=== PATIENT | male | born 1950 | race African-American/Black ===

== ENCOUNTER 2017-11-25 22:34 | Inpatient (IN) ==
[2017-11-26 00:41] LABS: Basophils # 0.1 10*3/uL (0.0-0.2); Basophils % 1.1 % (0.0-0.8); Eosinophils # 0.5 10*3/uL (0.0-0.87); Eosinophils % 6.6 % (0.00-10.9); Hematocrit 41.4 VOL% (42.0-52.0); Hemoglobin 14.1 GM/DL (14.0-18.0); Immature Granulocytes % 0.4 %; Immature Granulocytes Absolute 0.03 #; Lymphocytes # 2.5 10*3/uL (1.4-4.0); Lymphocytes % 35.7 % (21.2-54.2); Mean Corpuscular HGB Conc 34.1 GM/DL (32-36); Mean Corpuscular Hemoglobin 29 PG (27-34); Mean Corpuscular Volume 86.4 FL (87-102); Mean Platelet Volume 11.4 FL (9.6-12.0); Monocytes # 0.9 10*3/uL (0.11-0.8); Neutrophils # 3.1 10*3/uL (1.4-7.4); Neutrophils % 44.2 % (38.7-73.9); Platelet Count 218 T/CUMM (130-400); Red Blood Count 4.79 MC/CUMM (3.8-5.5); Red Cell Distribution Width 13.9 % (9.3-17.3); White Blood Count 7.1 T/CUMM (4-12)
[2017-11-26 00:45] LABS: Albumin 3.2 G/DL (3.4-5.0); Bilirubin,Total 9.6 MG/DL (0.2-1.0); Calcium 9.1 MG/DL (8.5-10.1); Osmolality,Calculated 280.5 MOS/KG (273-304); Potassium 3.7 MMOL/L (3.5-5.1); Total Protein 7.5 G/DL (6.4-8.3)
[2017-11-26 01:00] LABS: Apearance,Urine CLEAR (Clear); Bilirubin,Urine Moderate mg/dL (Negative); Blood, Urine Moderate mg/dL (Negative); Glucose,Urine (UA) Negative (Negative); Hyaline Casts,Urine 6 /LPF (0-3); Ketones,Urine Negative (Negative); Mucus,Urine Occasional /LPF (Occasional); Nitrite,Urine Negative (Negative); Protein,Urine Negative; RBC,Urine 3 /HPF (0-4); Squamous Epithelial Cell,Urine Occasional /HPF (0-10); Urine Color Amber (Yellow); WBC,Urine 2 /HPF (0-6)
[2017-11-26] MEDS ORDERED: MORPHINE 2 MG/1 ML SYRINGE IV PRN (07:50)
[2017-11-26] MEDS ORDERED: CIPROFLOXACIN 400 MG/200 ML PREMIX IV ONE (08:32)
[2017-11-26] MEDS ORDERED: FAMOTIDINE 20 MG/2 ML VIAL IV ONE (08:32)
[2017-11-26] MEDS: CIPROFLOXACIN INJ 400 MG in PREMIX 1 EACH IV SCH ×2 (08:39→22:35)
[2017-11-26] MEDS: FAMOTIDINE 20 MG/2 ML VIAL IV SCH ×2 (08:39→20:47)
[2017-11-26] MEDS ORDERED: metroNIDAZOLE 500 MG/100 ML PREMIX IV ONE (10:16)
[2017-11-26] MEDS: metroNIDAZOLE INJ 500 MG in PREMIX 1 EACH IV SCH ×2 (10:22→17:17)
[2017-11-26] MEDS ORDERED: ACETAMINOPHEN 325 MG TABLET PO PRN (10:41)
[2017-11-26] MEDS ORDERED: guaiFENesin/DM ER 600-30 MG TABLET PO PRN (10:41)
[2017-11-26] MEDS ORDERED: PROMETHAZINE 25 MG/1 ML VIAL IM PRN (10:41)
[2017-11-26] MEDS ORDERED: DOCUSATE SODIUM 100 MG CAPSULE PO PRN (10:41)
[2017-11-26] MEDS ORDERED: ONDANSETRON 4 MG/2 ML VIAL IV PRN (10:41)
[2017-11-26] MEDS ORDERED: diphenhydrAMINE CAP 25 MG CAPSULE PO PRN (10:41)
[2017-11-26] MEDS ORDERED: SODIUM CHLORIDE 0.9% 1,000 ML IV SCH (11:00)
[2017-11-26] MEDS ORDERED: PANTOPRAZOLE 40 MG VIAL IV ONE (11:05)
[2017-11-26] MEDS ORDERED: ENOXAPARIN 40 MG/0.4 ML SYRINGE ONE (11:05)
[2017-11-26] MEDS ORDERED: HYDROmorphone 2 MG/1 ML VIAL ONE (11:06)
[2017-11-26] MEDS: HYDROmorphone 2 MG/1 ML VIAL IV SCH (11:15)
[2017-11-26] MEDS: ENOXAPARIN 40 MG/0.4 ML SYRINGE SUBCUT SCH (11:15)
[2017-11-26] MEDS: PANTOPRAZOLE 40 MG VIAL IV SCH (11:16)
[2017-11-26] MEDS: LISINOPRIL/HCTZ 20-12.5 MG TABLET PO SCH (11:31)
[2017-11-26 12:53] LABS: AFP Tumor 1.6 NG/ML (0-8); Cancer Antigen 19-9 493.5 U/ML (0-37)
[2017-11-26 13:15] LABS: INR 1.1; PT Patient Result 11.8 SECS; Partial Thromboplastin Time 30.8 SECS (0-40)
[2017-11-26] MEDS ORDERED: PROPOFOL 200 MG/20 ML VIAL IV ONE (13:32)
[2017-11-26] MEDS ORDERED: ROCURONIUM 100 MG/10 ML VIAL IV ONE (13:32)
[2017-11-26] MEDS ORDERED: LIDOCAINE 2% 5 ML VIAL ONE (13:32)
[2017-11-26] MEDS ORDERED: ONDANSETRON 4 MG/2 ML VIAL ONE (13:32)
[2017-11-26] MEDS ORDERED: GLYCOPYRROLATE 0.4 MG/2 ML VIAL ONE (13:32)
[2017-11-26] MEDS ORDERED: SUCCINYLCHOLINE 200 MG/10 ML VIAL ONE (13:32)
[2017-11-26] MEDS ORDERED: INDOMETHACIN SUPP 50 MG SUPP RECTAL ONE (13:44)
[2017-11-26] MEDS ORDERED: fentaNYL 100 MCG/2 ML VIAL ONE (14:27)
[2017-11-26] MEDS ORDERED: ePHEDrine 50 MG/ML AMP ONE (14:28)
[2017-11-26] MEDS: SODIUM CHLORIDE 0.9% 1,000 ML IV SCH (17:16)
[2017-11-27] MEDS: metroNIDAZOLE INJ 500 MG in PREMIX 1 EACH IV SCH ×5 (00:52→23:58)
[2017-11-27] MEDS: SODIUM CHLORIDE 0.9% 1,000 ML IV SCH ×2 (06:19→20:42)
[2017-11-27] MEDS: HYDROmorphone 2 MG/1 ML VIAL IV SCH (07:37)
[2017-11-27] MEDS: LISINOPRIL/HCTZ 20-12.5 MG TABLET PO SCH ×2 (07:39→09:05)
[2017-11-27 08:17] LABS: Basophils # 0.1 10*3/uL (0.0-0.2); Basophils % 0.7 % (0.0-0.8); Eosinophils # 0.1 10*3/uL (0.0-0.87); Eosinophils % 1.1 % (0.00-10.9); Hematocrit 41.6 VOL% (42.0-52.0); Hemoglobin 14.4 GM/DL (14.0-18.0); Immature Granulocytes % 0.3 %; Immature Granulocytes Absolute 0.03 #; Lymphocytes % 11.6 % (21.2-54.2); Mean Corpuscular HGB Conc 34.6 GM/DL (32-36); Mean Corpuscular Hemoglobin 30 PG (27-34); Mean Corpuscular Volume 86.1 FL (87-102); Mean Platelet Volume 10.5 FL (9.6-12.0); Monocytes # 0.8 10*3/uL (0.11-0.8); Monocytes % 8.7 % (1.7-12.7); Neutrophils % 77.6 % (38.7-73.9); Platelet Count 207 T/CUMM (130-400); Red Blood Count 4.83 MC/CUMM (3.8-5.5); Red Cell Distribution Width 13.8 % (9.3-17.3)
[2017-11-27 08:52] LABS: Albumin 3.3 G/DL (3.4-5.0); Calcium 8.4 MG/DL (8.5-10.1); Osmolality,Calculated 274.8 MOS/KG (273-304); Potassium 3.7 MMOL/L (3.5-5.1)
[2017-11-27] MEDS: CIPROFLOXACIN INJ 400 MG in PREMIX 1 EACH IV SCH ×2 (10:11→20:36)
[2017-11-27] MEDS: FAMOTIDINE 20 MG/2 ML VIAL IV SCH ×2 (10:12→20:38)
[2017-11-27] MEDS: PANTOPRAZOLE 40 MG VIAL IV SCH (10:13)
[2017-11-27] MEDS: TAMSULOSIN 0.4 MG CAPSULE PO SCH (10:16)
[2017-11-27] MEDS: ENOXAPARIN 40 MG/0.4 ML SYRINGE SUBCUT SCH (13:52)
[2017-11-28] MEDS: metroNIDAZOLE INJ 500 MG in PREMIX 1 EACH IV SCH ×3 (06:23→18:26)
[2017-11-28 07:58] LABS: Albumin 2.7 G/DL (3.4-5.0); Bilirubin,Total 3.5 MG/DL (0.2-1.0); Osmolality,Calculated 282.3 MOS/KG (273-304); Potassium 3.6 MMOL/L (3.5-5.1); Total Protein 5.7 G/DL (6.4-8.3)
[2017-11-28] MEDS ORDERED: hydrALAZINE 20 MG/1 ML VIAL IV PRN (08:15)
[2017-11-28] MEDS ORDERED: SODIUM CHLORIDE 0.9% 1,000 ML IV SCH (08:30)
[2017-11-28] MEDS: CIPROFLOXACIN INJ 400 MG in PREMIX 1 EACH IV SCH ×2 (09:22→21:59)
[2017-11-28] MEDS: LISINOPRIL/HCTZ 20-12.5 MG TABLET PO SCH (09:37)
[2017-11-28] MEDS ORDERED: HYDROmorphone 2 MG/1 ML VIAL IV PRN (11:06)
[2017-11-28] MEDS: TAMSULOSIN 0.4 MG CAPSULE PO SCH (12:31)
[2017-11-28] MEDS: PANTOPRAZOLE 40 MG VIAL IV SCH (12:33)
[2017-11-28] MEDS: ENOXAPARIN 40 MG/0.4 ML SYRINGE SUBCUT SCH (12:34)
[2017-11-28] MEDS: FAMOTIDINE 20 MG/2 ML VIAL IV SCH (12:34)
[2017-11-28] MEDS: cloNIDine 0.1 MG TABLET PO SCH ×3 (13:14→21:48)
[2017-11-28] MEDS: HYDROmorphone 2 MG/1 ML VIAL IV PRN ×3 (14:39→21:44)
[2017-11-28 18:39] LABS: Apearance,Urine Clear (Clear); Bilirubin,Urine Negative (Negative); Glucose,Urine (UA) Negative (Negative); Ketones,Urine Negative (Negative); Nitrite,Urine Negative (Negative); Protein,Urine Negative; Urine Color Yellow (Yellow)
[2017-11-28 18:40] LABS: Blood, Urine Trace mg/dL (Negative); WBC,Urine 0-5 /HPF (0-6)
[2017-11-29] MEDS: FAMOTIDINE 20 MG/2 ML VIAL IV SCH ×2 (00:34→09:02)
[2017-11-29] MEDS: metroNIDAZOLE INJ 500 MG in PREMIX 1 EACH IV SCH ×3 (00:40→12:21)
[2017-11-29 05:42] LABS: Calcium 8.2 MG/DL (8.5-10.1); Osmolality,Calculated 282.3 MOS/KG (273-304); Potassium 3.7 MMOL/L (3.5-5.1)
[2017-11-29] MEDS: CIPROFLOXACIN INJ 400 MG in PREMIX 1 EACH IV SCH (09:02)
[2017-11-29] MEDS: PANTOPRAZOLE 40 MG VIAL IV SCH (09:02)
[2017-11-29] MEDS: TAMSULOSIN 0.4 MG CAPSULE PO SCH (09:03)
[2017-11-29] MEDS: LISINOPRIL/HCTZ 20-12.5 MG TABLET PO SCH (09:03)
[2017-11-29] MEDS: cloNIDine 0.1 MG TABLET PO SCH (09:03)
[2017-11-29] MEDS: HYDROmorphone 2 MG/1 ML VIAL IV SCH ×4 (09:23→09:25)
[2017-11-29] MEDS: SODIUM CHLORIDE 0.9% 1,000 ML IV SCH (09:25)
[2017-11-29 09:57] LABS: Albumin 2.6 G/DL (3.4-5.0); Bilirubin,Direct 1.94 MG/DL (0.0-0.20); Bilirubin,Indirect 0.6 MG/DL (0.0-1.0); Bilirubin,Total 2.5 MG/DL (0.2-1.0); Total Protein 5.3 G/DL (6.4-8.3)
[2017-11-29] MEDS: ENOXAPARIN 40 MG/0.4 ML SYRINGE SUBCUT SCH (12:21)
[2017-11-29 16:24] VITALS: BP 112/67
== END 2017-11-29 17:32 | disposition home or self-care (01) | DRG 438 ==
LOC: N.ED 22:34 → N.EDINP 11-26 12:07 → N.4E 11-26 12:09
PROC: ERCPWST (ICD-10-PCS; 2017-11-26 12:50)

== ENCOUNTER 2018-09-14 20:16 | Inpatient (IN) ==
[2018-09-14] MEDS ORDERED: SODIUM CHLORIDE 0.9% 1,000 ML IV STA (20:28)
[2018-09-14] MEDS ORDERED: DILTIAZEM 50 MG/10 ML VIAL IV STA ×2 (20:28→20:36)
[2018-09-14] MEDS ORDERED: DILTIAZEM 25 MG/5 ML VIAL IV ONE (20:31)
[2018-09-14 20:59] LABS: INR 2.4
[2018-09-14 21:04] LABS: Hematocrit 47.1 VOL% (42.0-52.0); Hemoglobin 15.2 GM/DL (14.0-18.0); Lymphocytes % 98.1 % (21.2-54.2); Mean Corpuscular HGB Conc 32.3 GM/DL (32-36); Mean Corpuscular Hemoglobin 28 PG (27-34); Mean Corpuscular Volume 87.9 FL (87-102); Neutrophils % 1.9 % (38.7-73.9); Red Blood Count 5.36 MC/CUMM (3.8-5.5); Red Cell Distribution Width 13.3 % (9.3-17.3)
[2018-09-14 21:06] LABS: Albumin 2.5 G/DL (3.4-5.0); Bilirubin,Total 0.6 MG/DL (0.2-1.0); Calcium 8.8 MG/DL (8.5-10.1); Osmolality,Calculated 324.7 MOS/KG (273-304); Thyroid Stimulating Hormone 1.65 uIU/ml (0.358-3.74); Total Protein 6.6 G/DL (6.4-8.3)
[2018-09-14 21:10] LABS: Platelet Count 5 T/CUMM (130-400)
[2018-09-14] MEDS ORDERED: CEFEPIME 1,000 MG in SODIUM CHLORIDE 0.9% 100 ML IV STA (21:17)
[2018-09-14 22:33] LABS: Lactic Acid 4.9 MMOL/L (0.4-2.0)
[2018-09-14] MEDS ORDERED: ACETAMINOPHEN 500 MG TABLET PO PRN (22:43)
[2018-09-14] MEDS ORDERED: ONDANSETRON 4 MG/2 ML VIAL IV PRN (22:43)
[2018-09-14] MEDS ORDERED: LACTULOSE 20 GM/30 ML UDCUP PO PRN (22:43)
[2018-09-14] MEDS ORDERED: NICOTINE 21 MG/24 HR PATCH TRANSDERM PRN (22:43)
[2018-09-14] MEDS ORDERED: PROMETHAZINE 25 MG/1 ML VIAL IM PRN (22:43)
[2018-09-14] MEDS ORDERED: DEXTROSE 50% 25 GM/50 ML VIAL IV PRN (22:43)
[2018-09-14] MEDS ORDERED: dilTIAZem Drip 125 MG/125 ML PREMIX IV ONE (22:43)
[2018-09-14] MEDS ORDERED: GLUCAGON 1 MG VIAL IM PRN (22:43)
[2018-09-14] MEDS ORDERED: ALBUTEROL 2.5 MG/3 ML NEB RESP TX PRN (22:43)
[2018-09-14] MEDS ORDERED: diphenhydrAMINE CAP 25 MG CAPSULE PO PRN (22:43)
[2018-09-14] MEDS: dilTIAZem Drip 125 MG/125 ML PREMIX IV SCH (23:00)
[2018-09-14] MEDS ORDERED: PIPERACILLIN/TAZOBACTAM 3,375 MG in SODIUM CHLORIDE 0.9% 100 ML IV SCH (23:00)
[2018-09-14] MEDS: SODIUM CHLORIDE 0.9% 1,000 ML IV SCH (23:00)
[2018-09-14] MEDS ORDERED: CEFEPIME 1,000 MG in SODIUM CHLORIDE 0.9% 100 ML IV SCH (23:00)
[2018-09-14] MEDS ORDERED: PIPERACILLIN/TAZOBACTAM 2,250 MG in SODIUM CHLORIDE 0.9% 100 ML IV SCH (23:30)
[2018-09-14 23:33] LABS: Anisocytosis Slight; Lymphocytes 100 % (20-55); Macrocytosis Slight; Nucleated Red Blood Cells 2 (0-5); Platelet Estimate Decreased; Total Cells Counted 100
[2018-09-14] MEDS ORDERED: SODIUM CHLORIDE 0.9% 1,000 ML IV PRN (23:45)
[2018-09-15] MEDS ORDERED: NOREPINEPHRINE 4 MG/4 ML VIAL IV ONE (00:36)
[2018-09-15] MEDS ORDERED: VANCOMYCIN INJ 1,000 MG in SODIUM CHLORIDE 0.9% 250 ML IV SCH (01:00)
[2018-09-15] MEDS: NOREPINEPHRINE 8 MG in SODIUM CHLORIDE 0.9% 242 ML IV PRN (01:09)
[2018-09-15] MEDS: ALBUTEROL/IPRATROPIUM 3 ML NEB RESP TX SCH ×4 (01:40→19:22)
[2018-09-15] MEDS: INSULIN REGULAR 100 UNIT/ML SUBCUT SCH ×4 (02:55→17:30)
[2018-09-15] MEDS: PIPERACILLIN/TAZOBACTAM 3,375 MG in SODIUM CHLORIDE 0.9% 100 ML IV SCH ×3 (03:51→17:30)
[2018-09-15] MEDS ORDERED: SODIUM CHLORIDE 0.9% 1,000 ML IV ONE (04:18)
[2018-09-15 04:21] LABS: Amorphous Crystals,Urine Occasional /HPF (Few); Apearance,Urine CLOUDY (Clear); Bacteria,Urine Occasional /HPF (Few); Bilirubin,Urine Negative (Negative); Blood, Urine Large mg/dL (Negative); Glucose,Urine (UA) 50 mg/dL (Negative); Hyaline Casts,Urine 21 /LPF (0-3); Ketones,Urine Negative (Negative); Mucus,Urine Occasional /LPF (Occasional); Nitrite,Urine Negative (Negative); Protein,Urine 30 MG/DL; RBC,Urine 18 /HPF (0-4); Squamous Epithelial Cell,Urine Occasional /HPF (0-10); Urine Specific Gravity 1.016 (1.001-1.035); Urine Urobilinogen < 2.0 EU/DL (0.2-1.0); WBC,Urine 2 /HPF (0-6)
[2018-09-15 04:29] LABS: Barbiturates Screen,Urine Negative (Negative); Benzodiazepines Screen,Urine Negative (Negative); Cannabinoid Screen,Urine Positive (Negative); Opiate Screen,Urine Positive (Negative); Phencyclidine Screen,Urine Negative (Negative)
[2018-09-15 04:33] LABS: Urine Color Yellow (Yellow)
[2018-09-15 05:13] LABS: Hematocrit 37.3 VOL% (42.0-52.0); Hemoglobin 12.5 GM/DL (14.0-18.0); Lymphocytes # 0.5 10*3/uL (1.4-4.0); Mean Corpuscular HGB Conc 33.5 GM/DL (32-36); Mean Corpuscular Hemoglobin 29 PG (27-34); Mean Corpuscular Volume 85.7 FL (87-102); Mean Platelet Volume 9.1 FL (9.6-12.0); Red Blood Count 4.35 MC/CUMM (3.8-5.5); Red Cell Distribution Width 13.2 % (9.3-17.3); White Blood Count 0.5 T/CUMM (4-12)
[2018-09-15 05:26] LABS: Platelet Count 14 T/CUMM (130-400)
[2018-09-15 05:30] LABS: Alanine Aminotransferase 59 U/L (16-61); Albumin 1.8 G/DL (3.4-5.0); Alkaline Phosphatase 93 U/L (45-117); Aspartate Amino Transferase 58 U/L (0-37); Blood Urea Nitrogen 90 MG/DL (7-18); Calcium 7.8 MG/DL (8.5-10.1); Glucose 176 MG/DL (74-106); Lactic Acid 6.7 MMOL/L (0.4-2.0); Potassium 3.4 MMOL/L (3.5-5.1); Sodium 150 MMOL/L (136-145); Total Protein 4.8 G/DL (6.4-8.3)
[2018-09-15 06:21] LABS: Burr Cells Slight; Hypochromasia 1+; Lymphocytes 100 % (20-55); Ovalocytes Slight; Platelet Estimate Decreased; Total Cells Counted 100
[2018-09-15 06:32] LABS: ABG Base Excess -9.9 MMOL/L (-2.5-2.5); ABG HCO3 12.7 MMOL/L (20-26); ABG Oxygen Saturation 76.3 % (95-100); ABG PCO2 21.1 MM HG (35-48); ABG PH 7.397 (7.35-7.45); ABG PO2 48.2 MM HG (80-95); ABG TCO2 13.3 MMOL/L (23-27); Allen Test Positive; Pt O2 Delivery Device Venturi Mask
[2018-09-15] MEDS: SODIUM CHLORIDE 0.9% 1,000 ML IV SCH ×5 (06:44→22:26)
[2018-09-15] MEDS: FILGRASTIM-SNDZ 300 MCG/0.5 ML SYRINGE SUBCUT SCH (08:16)
[2018-09-15] MEDS: FAMOTIDINE 20 MG/2 ML VIAL IV SCH (08:16)
[2018-09-15] MEDS ORDERED: TAMSULOSIN 0.4 MG CAPSULE PO SCH (09:00)
[2018-09-15 09:38] LABS: ABG Base Excess -10.6 MMOL/L (-2.5-2.5); ABG HCO3 16.1 MMOL/L (20-26); ABG Oxygen Saturation 94.6 % (95-100); ABG PCO2 22.5 MM HG (35-48); ABG PH 7.368 (7.35-7.45); ABG PO2 78.8 MM HG (80-95); ABG TCO2 11.3 MMOL/L (23-27)
[2018-09-15] MEDS: MORPHINE 4 MG/1 ML VIAL IV PRN (09:58)
[2018-09-15] MEDS: LORazepam 2 MG/1 ML VIAL IV PRN (15:53)
[2018-09-15] MEDS: dilTIAZem Drip 125 MG/125 ML PREMIX IV SCH (22:27)
[2018-09-15 22:49] LABS: Lactic Acid 2.8 MMOL/L (0.4-2.0)
[2018-09-16] MEDS: INSULIN REGULAR 100 UNIT/ML SUBCUT SCH ×4 (00:26→18:24)
[2018-09-16] MEDS: ALBUTEROL/IPRATROPIUM 3 ML NEB RESP TX SCH ×4 (00:58→19:35)
[2018-09-16] MEDS: PIPERACILLIN/TAZOBACTAM 3,375 MG in SODIUM CHLORIDE 0.9% 100 ML IV SCH (04:15)
[2018-09-16 04:26] LABS: Hematocrit 39.2 VOL% (42.0-52.0); Hemoglobin 13.3 GM/DL (14.0-18.0); Lymphocytes # 0.3 10*3/uL (1.4-4.0); Lymphocytes % 96.6 % (21.2-54.2); Mean Corpuscular HGB Conc 33.9 GM/DL (32-36); Mean Corpuscular Hemoglobin 29 PG (27-34); Mean Corpuscular Volume 84.3 FL (87-102); Neutrophils % 3.4 % (38.7-73.9); Red Blood Count 4.65 MC/CUMM (3.8-5.5); Red Cell Distribution Width 13.3 % (9.3-17.3)
[2018-09-16 04:31] LABS: Partial Thromboplastin Time 34.1 SECS (0-40)
[2018-09-16 04:36] LABS: INR 3.3; Platelet Count 3 T/CUMM (130-400); White Blood Count 0.3 T/CUMM (4-12)
[2018-09-16 04:37] LABS: PT Patient Result 33.3 SECS
[2018-09-16 04:43] LABS: Albumin 1.5 G/DL (3.4-5.0); Bilirubin,Total 0.9 MG/DL (0.2-1.0); Calcium 7.4 MG/DL (8.5-10.1); Osmolality,Calculated 337.3 MOS/KG (273-304); Potassium 3.2 MMOL/L (3.5-5.1); Total Protein 4.8 G/DL (6.4-8.3)
[2018-09-16 04:48] LABS: Lymphocytes 100 % (20-55)
[2018-09-16 04:49] LABS: Platelet Estimate Decreased; Total Cells Counted 100
[2018-09-16 04:50] LABS: Polychromasia Few
[2018-09-16] MEDS: SODIUM CHLORIDE 0.9% 1,000 ML IV SCH (05:58)
[2018-09-16 06:13] LABS: Hematocrit 38.5 VOL% (42.0-52.0); Hemoglobin 13.2 GM/DL (14.0-18.0); Lymphocytes # 0.3 10*3/uL (1.4-4.0); Mean Corpuscular HGB Conc 34.3 GM/DL (32-36); Mean Corpuscular Hemoglobin 29 PG (27-34); Mean Corpuscular Volume 83.9 FL (87-102); Red Blood Count 4.59 MC/CUMM (3.8-5.5); Red Cell Distribution Width 13.5 % (9.3-17.3)
[2018-09-16 06:17] LABS: White Blood Count 0.3 T/CUMM (4-12)
[2018-09-16 06:18] LABS: Platelet Count 1 T/CUMM (130-400)
[2018-09-16] MEDS ORDERED: SODIUM CHLOR 0.45% KCL 20 MEQ 20 MEQ/1,000 ML BAG IV SCH (06:30)
[2018-09-16 06:37] LABS: Lymphocytes 100 % (20-55); Ovalocytes 1+; Platelet Estimate Decreased; Smudge Cells Few; Total Cells Counted 100
[2018-09-16 06:38] LABS: Acanthocytes Few; Burr Cells 2+; Hypochromasia 1+; Target Cells Few
[2018-09-16] MEDS: MEROPENEM 500 MG in SODIUM CHLORIDE 0.9% 100 ML IV SCH ×2 (09:17→21:11)
[2018-09-16] MEDS: FILGRASTIM-SNDZ 300 MCG/0.5 ML SYRINGE SUBCUT SCH (09:17)
[2018-09-16] MEDS: FAMOTIDINE 20 MG/2 ML VIAL IV SCH (09:18)
[2018-09-16] MEDS ORDERED: DEXTROSE 5% 1,000 ML IV SCH (11:30)
[2018-09-16] MEDS: DEXTROSE 5% KCL 20 MEQ 20 MEQ/1,000 ML BAG IV SCH ×2 (12:18→23:00)
[2018-09-16] MEDS ORDERED: ADENOSINE 6 MG/2 ML VIAL ONE ×2 (14:07→14:08)
[2018-09-16] MEDS ORDERED: METOPROLOL TARTRATE 5 MG/5 ML VIAL IV ONE ×2 (14:20→14:21)
[2018-09-16] MEDS ORDERED: DIGOXIN 0.5 MG/2 ML AMP ONE (15:09)
[2018-09-16] MEDS ORDERED: DIGOXIN 0.5 MG/2 ML AMP IV ONE ×2 (15:11→21:00)
[2018-09-16] MEDS: dilTIAZem Drip 125 MG/125 ML PREMIX IV SCH (19:40)
[2018-09-16] MEDS: MORPHINE 4 MG/1 ML VIAL IV PRN (22:59)
[2018-09-16 23:52] LABS: ABG Base Excess -7.5 MMOL/L (-2.5-2.5); ABG HCO3 18.2 MMOL/L (20-26); ABG Oxygen Saturation 89.9 % (95-100); ABG PCO2 32.5 MM HG (35-48); ABG PH 7.335 (7.35-7.45); ABG PO2 64.5 MM HG (80-95); ABG TCO2 15.2 MMOL/L (23-27)
[2018-09-16 23:55] LABS: Hematocrit 36.9 VOL% (42.0-52.0); Hemoglobin 12.8 GM/DL (14.0-18.0); Lymphocytes # 0.3 10*3/uL (1.4-4.0); Mean Corpuscular HGB Conc 34.7 GM/DL (32-36); Mean Corpuscular Hemoglobin 29 PG (27-34); Mean Corpuscular Volume 83.3 FL (87-102); Red Blood Count 4.43 MC/CUMM (3.8-5.5); Red Cell Distribution Width 13.2 % (9.3-17.3)
[2018-09-16 23:57] LABS: White Blood Count 0.3 T/CUMM (4-12)
[2018-09-16 23:58] LABS: Platelet Count 1 T/CUMM (130-400)
[2018-09-17] MEDS ORDERED: SODIUM CHLORIDE 0.9% 1,000 ML IV PRN ×2 (00:04→11:41)
[2018-09-17 00:16] LABS: Albumin 1.4 G/DL (3.4-5.0); Calcium 7.5 MG/DL (8.5-10.1); Osmolality,Calculated 346.2 MOS/KG (273-304); Potassium 3.6 MMOL/L (3.5-5.1); Total Protein 4.5 G/DL (6.4-8.3)
[2018-09-17] MEDS: LORazepam 2 MG/1 ML VIAL IV PRN ×2 (00:35→16:23)
[2018-09-17] MEDS ORDERED: VANCOMYCIN INJ 1,000 MG in SODIUM CHLORIDE 0.9% 250 ML IV SCH (01:00)
[2018-09-17] MEDS: ALBUTEROL/IPRATROPIUM 3 ML NEB RESP TX SCH ×3 (01:30→15:16)
[2018-09-17] MEDS: MORPHINE 4 MG/1 ML VIAL IV PRN ×4 (02:00→16:22)
[2018-09-17] MEDS: INSULIN REGULAR 100 UNIT/ML SUBCUT SCH ×4 (02:12→17:38)
[2018-09-17] MEDS: dilTIAZem Drip 125 MG/125 ML PREMIX IV SCH (02:12)
[2018-09-17 03:16] LABS: Burr Cells 2+; Lymphocytes 100 % (20-55); Platelet Estimate Decreased
[2018-09-17 03:17] LABS: Ovalocytes 1+
[2018-09-17 03:18] LABS: Hypochromasia Slight; Schistocytes Few
[2018-09-17 03:19] LABS: Acanthocytes Few; Total Cells Counted 100
[2018-09-17] MEDS ORDERED: NOREPINEPHRINE 4 MG/4 ML VIAL IV ONE (07:13)
[2018-09-17 07:19] LABS: Hematocrit 35.8 VOL% (42.0-52.0); Hemoglobin 12.2 GM/DL (14.0-18.0); Lymphocytes # 0.5 10*3/uL (1.4-4.0); Mean Corpuscular HGB Conc 34.1 GM/DL (32-36); Mean Corpuscular Hemoglobin 29 PG (27-34); Mean Corpuscular Volume 84.6 FL (87-102); Red Blood Count 4.23 MC/CUMM (3.8-5.5); Red Cell Distribution Width 13.5 % (9.3-17.3)
[2018-09-17] MEDS: NOREPINEPHRINE 8 MG in SODIUM CHLORIDE 0.9% 242 ML IV PRN (07:20)
[2018-09-17 07:32] LABS: White Blood Count 0.5 T/CUMM (4-12)
[2018-09-17 07:33] LABS: Platelet Count 3 T/CUMM (130-400)
[2018-09-17 07:44] LABS: Calcium 7.4 MG/DL (8.5-10.1); Osmolality,Calculated 345.4 MOS/KG (273-304); Potassium 4.3 MMOL/L (3.5-5.1)
[2018-09-17 08:07] LABS: Lymphocytes 90 % (20-55); Segmented Neutrophils 10 % (50-85); Total Cells Counted 100
[2018-09-17 08:08] LABS: Hypochromasia 1+; Ovalocytes 1+; Target Cells Few
[2018-09-17 08:09] LABS: Anisocytosis 1+; Microcytosis 1+; Poikilocytosis 1+
[2018-09-17 08:10] LABS: Platelet Estimate Decreased
[2018-09-17] MEDS: DEXTROSE 5% KCL 20 MEQ 20 MEQ/1,000 ML BAG IV SCH (09:05)
[2018-09-17] MEDS: MEROPENEM 500 MG in SODIUM CHLORIDE 0.9% 100 ML IV SCH ×2 (09:06→20:17)
[2018-09-17] MEDS: FAMOTIDINE 20 MG/2 ML VIAL IV SCH (09:11)
[2018-09-17] MEDS: FILGRASTIM-SNDZ 300 MCG/0.5 ML SYRINGE SUBCUT SCH (09:16)
[2018-09-17 11:47] LABS: Albumin 1.3 G/DL (3.4-5.0); Bilirubin,Total 0.9 MG/DL (0.2-1.0); Calcium 7.6 MG/DL (8.5-10.1); Osmolality,Calculated 344.4 MOS/KG (273-304); Potassium 4.5 MMOL/L (3.5-5.1); Total Protein 4.5 G/DL (6.4-8.3)
[2018-09-17 18:07] VITALS: BP 65/42
== END 2018-09-17 22:10 | disposition expired | DRG 871 ==
LOC: EDBD → EDUNIT# → N.ED 20:16 → N.EDINP 22:05 → SUATTDRO 22:05 → N.CC 23:47
PROVIDERS: ADMIT Internal Medicine Geriatric Medicine; ATTEND Phlebology